=== PATIENT | female | born 2000 | race Caucasian/White ===

== ENCOUNTER 2022-11-20 15:42 | Emergency (ER) | payer MEDICARE, MEDICAID, SELFPAY ==
[2022-11-20 16:07] VITALS: BP 108/67; PULSE 97; RESP 20; TEMP 36.9; O2SAT 100; BMI 17.7
--- NOTE | 2022-11-20 16:08 | ED.FEMALEGU ---
HPI - Female Genitourinary General Chief complaint: Skin/Abscess/Foreign Body <LATANYA Noguera - Last Filed: 11/20/22 16:12> Stated complaint: outbreak? <LATANYA Noguera - Last Filed: 11/20/22 16:12> Time Seen by Provider: 11/20/22 17:02 <LATANYA Noguera - Last Filed: 11/20/22 16:12> Source: patient <Alberta Russell MD - Last Filed: 11/20/22 19:13> Mode of arrival: ambulatory <Alberta Russell MD - Last Filed: 11/20/22 19:13> History of Present Illness HPI Narrative: 22-year-old female complains of herpes to her genital area and then also notes that she is having some oral lesions that she is currently taking Magic mouthwash for as prescribed by the urgent care facility. <Alberta Russell MD - Last Filed: 11/20/22 19:13> Related Data Home medications: Previous Rx's Medication Instructions Recorded cefdinir 300 mg capsule 300 mg PO BID 7 days #14 caps 11/20/22 valacyclovir 1 gram tablet 1,000 mg PO Q12H 10 days #20 tabs 11/20/22 <LATANYA Noguera - Last Filed: 11/20/22 16:12> Allergies/Adverse reactions: Allergies Allergy/AdvReac Type Severity Reaction Status Date / Time No Known Allergies Allergy Verified 11/20/22 16:08 <LATANYA Noguera - Last Filed: 11/20/22 16:12> Review of Systems Review of Systems: Pertinent positives and negatives as stated in HPI <Alberta Russell MD - Last Filed: 11/20/22 19:13> PMFSH Past Medical History Source: nursing notes reviewed <Alberta Russell MD - Last Filed: 11/20/22 19:13> Social History Social History: Social History Advance Directives: No Advance Directives Information Provided: No <LATANYA Noguera - Last Filed: 11/20/22 16:12> Physical Exam Vital Signs: Vital Signs: Last Vital Signs Temp 98.5 F 11/20/22 16:07 Pulse 97 02/28/23 16:07 Resp 20 11/20/22 16:07 BP 108/67 11/20/22 16:07 Pulse Ox 100 11/20/22 16:07 O2 Del Method 11/20/22 16:07 BMI result Body Mass Index 17.7 <LATANYA Noguera - Last Filed: 11/20/22 16:12> Vital Signs: Last Vital Signs Temp 98.5 F 11/20/22 16:07 Pulse 97 11/20/22 16:07 Resp 20 11/20/22 16:07 BP 108/67 11/20/22 16:07 Pulse Ox 100 11/20/22 16:07 O2 Del Method 11/20/22 16:07 BMI result Body Mass Index 17.7 VITAL SIGNS: Reviewed. GENERAL: Well developed, well nourished, in no acute distress. HEAD: Normocephalic/atraumatic EYES: PERRLA, EOMI OROPHARYNX: no oral lesions noted, posterior pharynx clear, lesions noted to the gums, hard palate of the mouth and buccal mucosa NECK: Supple, no adenopathy LUNGS: Normal breath sounds. CARDIOVASCULAR: Regular rate and rhythm without noted murmurs ABDOMEN: Soft, non-tender, non-distended with bowel sounds. : Deferred NEUROLOGIC: Alert and oriented x 4. <Alberta Russell MD - Last Filed: 11/20/22 19:13> Course Course Course Narrative: RME--22-year-old female with no significant past medical history presenting to the ED complaining of suspected herpes outbreak. Reports painful lesions to lips, mouth, throat, and genital region. Admits was seen at urgent care last week prescribed Valtrex, however states unable to swallow pills due to pain. Also reports white vaginal discharge and itching. Denies new sexual partners Ulcerations and to lips, referred mouth, and tongue Herpes Cx, CTNG and UA ordered <LATANYA Noguera - Last Filed: 11/20/22 16:12> Medical Decision Making Medical Decision Making MDM Narrative: This is a 22-year-old female who presents with obvious herpangina, no evidence to suggest [id number], already on current recommended treatment. Complaints of genital herpes and will be started on recommendation of the acyclovir for 10 days and strongly recommend follow-up with primary care provider. Patient is also noted to have a UTI and received initial antibiotics here. I have reviewed all other investigations. <Alberta Russell MD - Last Filed: 11/20/22 19:13> Differential Diagnosis Please see the discussion above <Alberta Russell MD - Last Filed: 11/20/22 19:13> Lab Data Please see the discussion above <Alberta Russell MD - Last Filed: 11/20/22 19:13> Labs: Lab Results 11/20/22 11/20/22 Range/Units 16:15 16:15 Urine Color Yellow Urine Appearance Cloudy Urine pH 6.0 (5.0-9.0) Ur Specific [place] 1.025 (1.005-1.025) Urine Protein Trace (Neg-Trace) mg/dL Urine Glucose (UA) Negative (Negative) mg/dL Urine Ketones Trace (Negative) mg/dL Urine Blood Negative (Negative) Urine Nitrite Positive H (Negative) Ur Leukocyte Esterase Moderate (2+) H (Negative) Urine RBC 0-2 (0-2) /HPF Urine WBC 21-50 H (0-5) /HPF Ur Squamous Epith Cells 6-10 (0-2) /HPF Urine Bacteria 4+ (None Seen) Hyaline Casts 0-2 (0-2) /LPF Chlam trachomat DNA PCR NOT DETECTED (Not Detect.) N.gonorrhoeae DNA (PCR) NOT DETECTED (Not Detect.) <LATANYA Noguera - Last Filed: 11/20/22 16:12> Lab Results 11/20/22 11/20/22 Range/Units 16:15 16:15 Urine Color Yellow Urine Appearance Cloudy Urine pH 6.0 (5.0-9.0) Ur Specific [place] 1.025 (1.005-1.025) Urine Protein Trace (Neg-Trace) mg/dL Urine Glucose (UA) Negative (Negative) mg/dL Urine Ketones Trace (Negative) mg/dL Urine Blood Negative (Negative) Urine Nitrite Positive H (Negative) Ur Leukocyte Esterase Moderate (2+) H (Negative) Urine RBC 0-2 (0-2) /HPF Urine WBC 21-50 H (0-5) /HPF Ur Squamous Epith Cells 6-10 (0-2) /HPF Urine Bacteria 4+ (None Seen) Hyaline Casts 0-2 (0-2) /LPF Chlam trachomat DNA PCR NOT DETECTED (Not Detect.) N.gonorrhoeae DNA (PCR) NOT DETECTED (Not Detect.) <Alberta Russell MD - Last Filed: 11/20/22 19:13> Discharge Plan Discharge Clinical Impression: Genital herpes, Herpangina, UTI (urinary tract infection) <LATANYA Noguera - Last Filed: 11/20/22 16:12> Patient Disposition: Home, Self-Care <LATANYA Noguera - Last Filed: 11/20/22 16:12> Instructions: Genital Herpes Simplex (ED), Urinary Tract Infection in Women (ED), Hand, Foot, and Mouth Disease (ED) <LATANYA Noguera - Last Filed: 11/20/22 16:12> Additional Instructions: 1. Complete the entire course of antibiotics for your urinary tract infection. 2. Complete the entire course of medication for your herpes. 3. Your mouth has what is called herpangina and is appropriately being treated at this time. Use the prescribed mouthwash prior to taking medications for your UTI,etc 4. Follow-up with your primary care provider in the next 1-2 days. Return to the ER for any worsening symptoms. <LATANYA Noguera - Last Filed: 11/20/22 16:12> Prescriptions: New cefdinir 300 mg capsule 300 mg PO BID 7 Days Qty: 14 0RF valacyclovir 1 gram tablet 1,000 mg PO Q12H 10 Days Qty: 20 0RF <LATANYA Noguera - Last Filed: 11/20/22 16:12>
[2022-11-20 16:27] LABS: Appearance Urine Cloudy; Color Urine Yellow; Glucose Urine UA Negative (Negative); Leukocyte Esterase Urine Moderate (2+) (Negative); Nitrite Urine Positive (Negative); Specific Gravity - Urine 1.025 (1.005-1.025); UMIC TRIGGER UACC YES; Urine Blood Negative (Negative); Urine Ketones Trace mg/dL (Negative); Urine Protein Trace mg/dL (Neg-Trace)
[2022-11-20 16:30] LABS: Bacteria Urine 4+ (None Seen); Hyaline Casts Urine 0-2 /LPF (0-2); RBC Urine 0-2 /HPF (0-2); UACC Culture Trigger YES; WBC Urine 21-50 /HPF (0-5)
[2022-11-20 18:11] LABS: CT PCR NOT DETECTED (Not Detect.); NG PCR NOT DETECTED (Not Detect.)
== END 2022-11-20 21:08 | disposition home or self-care (01) ==
PROVIDERS: Physician Assistant; Emergency Provider Student in an Organized Health Care Education/Training Program
DX: A60.00 Herpesviral infection of urogenital system, unspecified (principal); B08.5 Enteroviral vesicular pharyngitis; N39.0 Urinary tract infection, site not specified; K13.70 Unspecified lesions of oral mucosa; Z79.899 Other long term (current) drug therapy
CPT/HCPCS: 0353U; 81001; 87086; 87088; 87186; 99282; 99283

== ENCOUNTER 2022-11-22 13:23 | Emergency (ER) | payer MEDICARE, MEDICAID, SELFPAY ==
[2022-11-22 13:38] VITALS: BP 141/67; PULSE 82; RESP 20; TEMP 36.6; O2SAT 98; BMI 15.2
--- NOTE | 2022-11-22 13:46 | ED_ITS ---
HPI - General Adult General Chief complaint: General Medical <Alphonse Hwang - Last Filed: 11/22/22 13:47> Stated complaint: hot/cold flashes, sob, R side pain <Alphonse Hwang - Last Filed: 11/22/22 13:47> Time Seen by Provider: 11/22/22 16:24 <Alphonse Hwang - Last Filed: 11/22/22 13:47> Source: patient, RN notes reviewed and old records reviewed <LATANYA Davis - Last Filed: 11/22/22 17:45> Mode of arrival: ambulatory <LATANYA Davis - Last Filed: 11/22/22 17:45> Limitations: no limitations <LATANYA Davis - Last Filed: 11/22/22 17:45> History of Present Illness HPI narrative: This is a 22-year-old female, with a past medical history of herpes, presents to the emergency department with worsening herpetic pain in her mouth as well as her genitals. Patient was seen on 11/20/2022 with a genital and oral herpetic outbreak and a urinary tract infection. At that visit, she was discharged on a course of cefdinir, valacyclovir, viscous lidocaine and viscous nystatin which she has been taking, however, she reports that her symptoms are not improving and her pain is worsening in her mouth and genitalia. She endorses subjective fevers. She denies any documented fevers, chills, abdominal pain nausea, vomiting, or diarrhea. She does report that she has a difficult time eating solid foods as the pain in her mouth is so significant. She is able to tolerate liquids. She states that this is her second herpetic outbreak. <LATANYA Davis - Last Filed: 11/22/22 17:45> MD complaint: mouth and genital sores <LATANYA Davis - Last Filed: 11/22/22 17:45> Onset (ago): day(s) <LATANYA Davis - Last Filed: 11/22/22 17:45> Location: mouth and genitals <LATANYA Davis Last Filed: 11/22/22 17:45> Radiation: non-radiation <LATANYA Davis Last Filed: 11/22/22 17:45> Severity: moderate <LATANYA Davis - Last Filed: 11/22/22 17:45> Severity scale (1-10): 8 <LATANYA Davis - Last Filed: 11/22/22 17:45> Quality: burning, aching and sharp <LATANYA Davis - Last Filed: 11/22/22 17:45> Pain Consistency: constant <LATANYA Davis - Last Filed: 11/22/22 17:45> Relieving factors: none <LATANYA Davis - Last Filed: 11/22/22 17:45> Exacerbating factors: none <LATANYA Davis - Last Filed: 11/22/22 17:45> Associated symptoms: fever/chills (Subjective) <LATANYA Davis - Last Filed: 11/22/22 17:45> Treatments prior to arrival: none <LATANYA Davis - Last Filed: 11/22/22 17:45> Related Data Home medications: Previous Rx's Medication Instructions Recorded cefdinir 300 mg capsule 300 mg PO BID 7 days #14 caps 11/20/22 valacyclovir 1 gram tablet 1,000 mg PO Q12H 10 days #20 tabs 11/20/22 Magic Mouthwash 15 ml PO Q2-3H PRN oral pain #240 11/22/22 Diphen/Lido/Antacid 1:1:1 240 mL mL suspension ibuprofen 100 mg/5 mL oral 300 mg (15 mL) PO Q6H #120 mL 11/22/22 suspension oxycodone 5 mg tablet 5 mg PO Q8H PRN pain #5 tabs 11/22/22 <Alphonse Hwang - Last Filed: 11/22/22 13:47> Allergies/adverse reactions: Allergies Allergy/AdvReac Type Severity Reaction Status Date / Time No Known Allergies Allergy Verified 11/20/22 16:08 <Alphonse Hwang - Last Filed: 11/22/22 13:47> Review of Systems Review of Systems: Yes all other systems are reviewed and are negative <LATANYA Davis - Last Filed: 11/22/22 17:45> PMFSH Social History Social History: Social History Advance Directives: No Advance Directives Information Provided: No <Alphonse Eri - Last Filed: 11/22/22 13:47> Physical Exam ED Vital Signs: Vital Signs - 24 hr 11/22/22 13:38 11/22/22 16:45 Temperature 97.9 F 98.8 F Pulse Rate 82 72 Respiratory Rate 20 16 Blood Pressure 141/67 H 113/63 Pulse Oximetry 98 98 Oxygen Delivery Method Room Air Room Air BMI result Body Mass Index 15.2 <Alphonse Hwang - Last Filed: 11/22/22 13:47> Vital Signs - 24 hr 11/22/22 13:38 11/22/22 16:45 Temperature 97.9 F 98.8 F Pulse Rate 82 72 Respiratory Rate 20 16 Blood Pressure 141/67 H 113/63 Pulse Oximetry 98 98 Oxygen Delivery Method Room Air Room Air BMI result Body Mass Index 15.2 <LATANYA Davis - Last Filed: 11/22/22 17:45> Appearance: Alert. Oriented X3. No acute distress. Thin build. HEENT: Numerous oral ulcerated lesions noted to the hard and soft palate, gums, buccal mucosa and sublingual area. Oral mucosa is moist. CVS: Normal heart rate and rhythm. Pulses normal. Respiratory: No respiratory distress. Skin: Skin warm and dry. Normal skin color. Normal skin turgor. No rashes. Extremities: Normal range of motion of upper and lower extremities. : external genitalia with mild generalized swelling, ulcerative lesions at the bilateral labia minora Neuro: Oriented X 3. No motor deficit. No sensory deficit. <LATANYA Davis - Last Filed: 11/22/22 17:45> Course Course Course Narrative: 22-year-old female who was seen here 2 days ago and diagnosed with genital herpes presents for evaluation of runny nose, sore throat, hot flashes. She is taking her Valtrex reports she is able to swallow but has pain with swallowing. The patient reports her symptoms are worsening so she re-presented to the emergency department. She is well-appearing. Will add on viral swab and strep throat. It is likely that her symptoms are related to the herpes outbreak. However there may be other trigger which caused the outbreak <Alphonse Hwang - Last Filed: 11/22/22 13:47> Reevaluation(s) Reevaluation #1: Viral swab and strep swab negative. Patient's symptoms consistent with genital herpes outbreak, advised to continue Valtex and cefdinir as directed. Prescribed magic mouthwash to help with pain, as well as oxycodone and liquid motrin. Discussed the importance of finding a PCP and [employer], given list of providers in the area to follow up with. Encouraged to eat soft foods until mouth lesion pain improve. <LATANYA Davis - Last Filed: 11/22/22 17:45> Time: 17:30 <LATANYA Davis - Last Filed: 11/22/22 17:45> Medical Decision Making Medical Decision Making [facility] Narrative: This is a 22-year-old female presents to the emergency department today with complaints of oral herpes, and genital herpes x1 week. <LATANYA Davis - Last Filed: 11/22/22 17:45> Differential Diagnosis Differential Diagnoses: The differential diagnosis associated with the presentation includes <LATANYA Davis - Last Filed: 11/22/22 17:45> Genital herpes, oral herpes, stomatitis, hand foot and mouth, vagintitis <LATANYA Davis - Last Filed: 11/22/22 17:45> Lab Data [facility] Lab Attestation statement: I reviewed the patient's lab results. <LATANYA Davis - Last Filed: 11/22/22 17:45> negative viral and strep test today <LATANYA Davis - Last Filed: 11/22/22 17:45> Labs: Lab Results 11/22/22 11/22/22 Range/Units 14:54 14:54 Influenza Type A (PCR) NEGATIVE (Negative) Influenza Type B (PCR) NEGATIVE (Negative) RSV RNA Qual (PCR) NEGATIVE (Negative) SARS-CoV-2 RNA (RT-PCR) NEGATIVE (Negative) S. pyogenes GrpA JULISA Negative (Negative) <Alphonse Hwang - Last Filed: 11/22/22 13:47> Lab Results 11/22/22 11/22/22 Range/Units 14:54 14:54 Influenza Type A (PCR) NEGATIVE (Negative) Influenza Type B (PCR) NEGATIVE (Negative) RSV RNA Qual (PCR) NEGATIVE (Negative) SARS-CoV-2 RNA (RT-PCR) NEGATIVE (Negative) S. pyogenes GrpA JULISA Negative (Negative) <LATANYA Davis - Last Filed: 11/22/22 17:45> Prescription Management I considered prescription management with: Pain Medication, Antiviral and Antibiotic <LATANYA Davis - Last Filed: 11/22/22 17:45> Discharge Plan Discharge Clinical Impression: Genital herpes, Oral herpes <Alphonse Hwang - Last Filed: 11/22/22 13:47> Patient Disposition: Home, Self-Care <Alphonse Hwang - Last Filed: 11/22/22 13:47> Instructions: Genital Herpes Simplex (ED), Oral Herpes Simplex Virus Infections (ED) <Alphonse Hwang - Last Filed: 11/22/22 13:47> Additional Instructions: You tested negative for flu, RSV, and COVID-19 today. Please continue taking prescribed Valacyclovir (anti-viral) and Cefdinir (antibiotic) prescribed to you at your last ER visit as directed. Use prescribed motrin as directed as needed for pain. Please use the prescribed oxycodone as directed as needed for severe pain. Please be advised this may cause drowsiness, do not drink alcohol or drive while taking this medication. Use magic mouthwash as directed as needed for mouth pain. Continue to eat soft foods including soups, puddings, liquids, until your mouth pain improves. Please follow up with a primary care physician. If you develop new or worsening symptoms call 911 or come back to the ER for further evaluation. <Alphonse Hwang - Last Filed: 11/22/22 13:47> Prescriptions: New Magic Mouthwash Diphen/Lido/Antacid 1:1:1 240 mL suspension 15 ml PO Q2-3H PRN (Reason: oral pain) Qty: 240 0RF Rx Instructions: 15 mL orally as needed ;Lidocaine Viscous 2 % 80mL; diphenhydramine 12.5 mg/5 mL 80mL; aluminum-mag hydrox-simeth [id number] 80mL oxycodone 5 mg tablet 5 mg PO Q8H PRN (Reason: pain) Qty: 5 0RF Rx Instructions: Partial Fill upon patient request. ibuprofen 100 mg/5 mL suspension 300 mg PO Q6H Qty: 120 0RF No Action cefdinir 300 mg capsule 300 mg PO BID 7 Days Qty: 14 0RF valacyclovir 1 gram tablet 1,000 mg PO Q12H 10 Days Qty: 20 0RF <Alphonse Hwang - Last Filed: 11/22/22 13:47>
[2022-11-22 15:16] LABS: IDNOW Serial# 6674DD1D; Strep A Nucleic Acid Negative (Negative)
[2022-11-22 15:40] LABS: Influenza A PCR NEGATIVE (Negative); Influenza B PCR NEGATIVE (Negative); Resp Syncy Virus RNA Qual PCR NEGATIVE (Negative); SARS COV2 PCR INHOUSE NEGATIVE (Negative)
[2022-11-22 16:45] VITALS: BP 113/63; PULSE 72; RESP 16; TEMP 37.1; O2SAT 98
== END 2022-11-22 18:09 | disposition home or self-care (01) ==
PROVIDERS: Physician Assistant; Emergency Provider Emergency Medicine
DX: A60.00 Herpesviral infection of urogenital system, unspecified (principal); R06.02 Shortness of breath; K13.79 Other lesions of oral mucosa; R50.9 Fever, unspecified; Z20.822 Contact with and (suspected) exposure to COVID-19; Z20.828 Contact with and (suspected) exposure to other viral communicable diseases
CPT/HCPCS: 0241U; 87651; 99283

== ENCOUNTER 2023-06-16 06:34 | Emergency (ER) | payer MEDICARE, MEDICAID, SELFPAY ==
--- NOTE | ~2023-06-16 | US_ITS ---
EXAMINATION: US FIRST [facility] CLINICAL INFORMATION: Abdominal pain LMP: 04/11/2023 COMPARISON: None available. TECHNIQUE: Transabdominal imaging was performed. FINDINGS: UTERUS AND INTRAUTERINE GESTATIONAL SAC: There is a fluid-filled structure within the endometrium could be a very small gestational sac versus pseudogestational sac measures 0.4 x 0.5 x 0.3 cm, possibly a of 4 weeks and 6 days. CROWN-RUMP LENGTH (CRL) no poles were found. YOLK SAC: Not found SUBCHORIONIC HEMORRHAGE: None OVARIES: Right: Normal complex cystic structure likely involuted corpus luteal cyst 2.4 x 1.8 x 1.7 cm. Left: Normal FREE FLUID: None OTHER FINDINGS: None US/US OB pelvic and transvaginal IMPRESSION: 1. Endometrial fluid filled structure sac could be gestational sac or pseudogestational sac, if this is early would be 4 weeks and 6 days. At this early stage cannot entirely rule out the possibility of ectopic , however none was readily seen. Please correlate with patient's hCG levels, attention to short-term follow-up in few weeks recommended. 2. Complex cystic structure in the right adnexa probably involuted corpus luteal cyst 2.4 cm.
[2023-06-16 06:41] VITALS: BP 121/62; PULSE 85; RESP 18; TEMP 36.9; O2SAT 100; BMI 16.1
[2023-06-16 06:59] VITALS: BP 106/52; PULSE 62; RESP 18; TEMP 36.8; O2SAT 99
--- NOTE | 2023-06-16 07:01 | PC.NURSE ---
Patient reports 05/02 abdominal aden that started about 2 days after the completion of her period States that pain comes and goes but is all over her abdomen and extends to her lower back. Denies pain with urination or blood in urine. Denies nasuea, states vomited in mouth x 1 last week. Denies chest pain, sob, or headache
[2023-06-16 07:16] LABS: UPreg QC Valid YES; Urine Pregnancy POSITIVE (NEGATIVE)
[2023-06-16 07:21] LABS: Appearance Urine Cloudy; Color Urine Yellow; Glucose Urine UA Negative (Negative); Leukocyte Esterase Urine Moderate (2+) (Negative); Nitrite Urine Negative (Negative); PH 6.5 (5.0-9.0); Specific Gravity - Urine 1.025 (1.005-1.025); UMIC TRIGGER UACC YES; Urine Blood Negative (Negative); Urine Ketones Trace mg/dL (Negative); Urine Protein Trace mg/dL (Neg-Trace)
--- NOTE | 2023-06-16 07:22 | ED_ITS ---
HPI - Abdominal Pain General Chief Complaint: Abdominal Pain Stated Complaint: stomach pain, dizziness Time Seen by Provider: 06/16/23 07:10 Source: patient Mode of arrival: ambulatory Limitations: no limitations History of Present Illness HPI narrative: 23-year-old female, G2, P0 presents with upper abdominal pain. The symptoms started yesterday. Patient is approximately 9 weeks . She denies any vaginal bleeding or discharge. She denies any nausea vomiting. There has been no fevers or chills. He upper abdominal pain is moderate nature. It is intermittent. It feels crampy in nature. Does not radiate. There is no clear relieving or exacerbating features. She has had 1 episode of nonbloody diarrhea. She denies any urinary frequency or urgency. She is currently not on a vitamin. She has not had an ultrasound her care at this time. Related Data Previous Rx's Medication Instructions Recorded cefdinir 300 mg capsule 300 mg PO BID 7 days #14 caps 11/20/22 valacyclovir 1 gram tablet 1,000 mg PO Q12H 10 days #20 tabs 11/20/22 Magic Mouthwash 15 ml PO Q2-3H PRN oral pain #240 11/22/22 Diphen/Lido/Antacid 1:1:1 240 mL mL suspension ibuprofen 100 mg/5 mL oral 300 mg (15 mL) PO Q6H #120 mL 11/22/22 suspension oxycodone 5 mg tablet 5 mg PO Q8H PRN pain #5 tabs 11/22/22 nitrofurantoin 100 mg PO BID #14 caps 06/16/23 monohydrate/macrocrystals 100 mg capsule (Macrobid) Allergies Allergy/AdvReac Type Severity Reaction Status Date / Time No Known Allergies Allergy Verified 11/20/22 16:08 Review of Systems Review of Systems CONSTITUTIONAL: Denies weight loss, fever and chills. HEENT: Denies changes in vision and hearing. RESPIRATORY: Denies SOB and cough. CV: Denies palpitations no CP. GI: + abdominal pain, -nausea, vomiting and diarrhea. : Denies dysuria and urinary frequency. MSK: Denies myalgia and joint pain. SKIN: Denies rash and pruritus. NEUROLOGICAL: Denies headache and syncope. PSYCHIATRIC: Denies recent changes in mood. Denies anxiety and depression. All other ROS are negative unless in HPI [facility] Social History Social History Alcohol intake: never Smoked in Last 30 Days: No Use of substances other than those prescribed or required for medical reasons: No Advance Directives: No Advance Directives Information Provided: No Physical Exam ED Vital Signs: Vital Signs - 24 hr 06/16/23 06:41 06/16/23 06:59 Temperature 98.4 F 98.2 F Pulse Rate 85 62 Respiratory Rate 18 18 Blood Pressure 121/62 106/52 L Pulse Oximetry 100 99 Oxygen Delivery Method Room Air Room Air BMI result Body Mass Index 16.1 GEN: Well developed, no acute distress, alert, oriented HEENT: Normocephalic, atraumatic, normal external ears, nose appears normal, no oropharyngeal edema or exudates Eyes: Normal to appearance Neck: Supple, no lymphadenopathy Respiratory: Talks in complete sentences, no respiratory distress, clear to auscultation bilaterally Cardiovascular: Regular rate and rhythm, no murmurs rubs or gallops Abdomen: Soft, nontender, nondistended, no guarding, no rebound Back: No CVA tenderness Extremities: No clubbing cyanosis or edema Neurologic: No focal neurologic deficits, cranial nerves 2-12 intact, strength is 5/5 bilaterally Skin: No rash Course Course Course Narrative: The workup is complete. There is no definite IUP seen. Beta hCG is 2000. I communicated with the on-call dinner cook. Recommending 2 day follow-up and to return for any worsening concerning symptoms such as increasing abdominal pain, vaginal bleeding or discharge. Patient does have a mildly elevated lipase. This could certainly be the etiology of her symptoms. She does not warrant hospitalization for mild pancreatitis. I discussed all results with patient. She understands the reasoning for follow-up and she will start a vitamin. Medical Decision Making Medical Decision Making MDM Narrative: 23-year-old female presents with upper abdominal pain, 1 episode of diarrhea. Examination is benign. There is no significant tenderness, rebound or guarding. Patient does not have a history of a confirmed IUP. She denies any vaginal bleeding or discharge. At this point, the most important thing to consider is an ectopic . Ultrasound will be ordered to rule this out. Also discussed routine care. She will be having routine laboratory testing including CBC, chemistry, lipase, urinalysis to rule out other possible differential diagnosis including hepatic dysfunction, pancreatitis. Patient may have gastroenteritis, dyspepsia, heartburn, gastritis. Will provide patient with Tylenol and famotidine for symptomatic relief. Differential Diagnosis Differential Diagnoses: The differential diagnosis associated with the presentation includes (See above) Admission/Observation Consideration of admission/observation: Escalation of care including admission/observation considered Lab Data MDM Lab Attestation statement: I reviewed the patient's lab results. 06/16/23 08:28 06/16/23 08:28 Labs: Lab Results 06/16/23 06/16/23 Range/Units 07:11 08:28 WBC 6.8 (4.8-10.8) X10*3/uL RBC 4.28 (4.20-5.50) X10*6/uL Hgb 12.0 (12.0-16.0) g/dl Hct 35.7 L (37.0-47.0) % MCV 83.4 (80.0-98.0) fL MCH 28.0 (27.0-33.0) pg MCHC 33.6 (31.0-35.0) g/dl RDW 14.2 (11.0-16.0) % Plt Count 182 (160-400) X10*3/uL MPV 9.9 (9.4-12.3) fL Immature Gran % (Auto) 0.3 (0.0-0.4) % Neut % (Auto) 69.2 (45-73) % Lymph % (Auto) 22.7 (20-40) % [place] % (Auto) 7.2 (2-11) % Eos % (Auto) 0.3 (0-4) % Baso % (Auto) 0.3 (0-2) % Lymph # (Auto) 1.6 (1.2-4.9) X10*3/uL [place] # (Auto) 0.5 (0.1-1.2) X10*3/uL Eos # (Auto) 0.0 (0.0-0.4) X10*3/uL Baso # (Auto) 0.0 (0.0-0.2) X10*3/uL Abs Immat Gran (auto) 0.02 (0.00-0.03) X10*3/uL Absolute Neuts (auto) 4.7 (2.0-8.3) x10*3/uL Absolute Nucleated RBC 0.000 (0.0-0.012) X10*3/uL Nucleated RBC % (auto) 0.0 (0.0-0.2) /100WBC Sodium 135 (135-145) mmol/L Potassium 4.1 (3.3-5.1) mmol/L Chloride 107 (96-108) mmol/L Carbon Dioxide 21 L (22-29) mmol/L Anion Gap 11 L (12-20) BUN 8 L (9-16) mg/dL Creatinine 0.76 (0.5-1.4) mg/dL Estim Creat Clear Calc 83.1 Estimated GFR > 60 Random Glucose 82 (60-115) mg/dL Calcium 9.8 (8.4-10.2) mg/dL Total Bilirubin 0.5 (0.0-1.0) mg/dL AST 19 (5-31) U/L ALT 10 (0-31) U/L Alkaline Phosphatase 48 (39-117) U/L Total Protein 7.8 (6.5-8.0) g/dL Albumin 4.4 (3.5-5.0) g/dL Lipase 231 H (8-78) U/L Beta HCG, Quant 2018 mIU/mL Urine Color Yellow Urine Appearance Cloudy Urine pH 6.5 (5.0-9.0) Ur Specific [place] 1.025 (1.005-1.025) Urine Protein Trace (Neg-Trace) mg/dL Urine Glucose (UA) Negative (Negative) mg/dL Urine Ketones Trace (Negative) mg/dL Urine Blood Negative (Negative) Urine Nitrite Negative (Negative) Ur Leukocyte Esterase Moderate (2+) H (Negative) Urine RBC 0-2 (0-2) /HPF Urine WBC 21-50 H (0-5) /HPF Ur Squamous Epith Cells >20 (0-2) /HPF Urine Bacteria 4+ (None Seen) Hyaline Casts 0-2 (0-2) /LPF Urine Test POSITIVE H (NEGATIVE) Blood Type O Positive Antibody Screen NEGATIVE Independent Interpretation I performed an independent interpretation of an: Ultrasound Radiology Impression Discussion of test interpretation with radiology: I have reviewed the radiologist's reading. Independent Historian Clinical information obtained from an independent historian. History obtained from or confirmed by: Friend Prescription Management I considered prescription management with: Pain Medication Medications Administered Discontinued Medications Generic Name Dose Route Start Last Admin Trade Name Lauri PRN Reason Stop Dose Admin Acetaminophen 975 mg 06/16/23 07:20 06/16/23 07:30 Acetaminophen 325 Mg Tablet PO 06/16/23 07:21 975 mg ONCE ONE Administration Famotidine 20 mg 06/16/23 07:20 06/16/23 07:31 Famotidine 20 Mg Tablet PO 06/16/23 07:21 20 mg ONCE ONE Administration Nitrofurantoin Macrocrystals 100 mg 06/16/23 08:03 06/16/23 08:20 Nitrofurantoin Monohyd/M-Cryst 100 Mg Capsule PO 06/16/23 08:04 100 mg ONCE ONE Administration Discharge Plan Discharge Clinical Impression: Abdominal pain, Acute lower UTI, Elevated lipase Patient Disposition: Home, Self-Care Instructions: Vitamins (By mouth), (ED), Pancreatitis (ED), Abdominal Pain in (ED) Additional Instructions: The reason the emergency department today with abdominal pain. Examination was relatively benign. Ultrasound did not confirm a definite intrauterine . We are recommending close follow-up in 2 days for repeat ultrasound and hormone level testing. In addition, you had mildly elevated lipase level. This is a pancreatic enzyme. He may have very mild pancreatitis. However, should she have increasing abdominal pain intractable nausea vomiting, vaginal bleeding or any other concerning symptoms, please return immediately to the emergency department. Additionally, you were diagnosed with urinary tract infection. You should take antibiotics as prescribed. Prescriptions: New nitrofurantoin monohyd/m-cryst [Macrobid] 100 mg capsule 100 mg PO BID Qty: 14 0RF Rx Instructions: must administer with a meal/food No Action cefdinir 300 mg capsule 300 mg PO BID 7 Days Qty: 14 0RF valacyclovir 1 gram tablet 1,000 mg PO Q12H 10 Days Qty: 20 0RF Magic Mouthwash Diphen/Lido/Antacid 1:1:1 240 mL suspension 15 ml PO Q2-3H PRN (Reason: oral pain) Qty: 240 0RF Rx Instructions: 15 mL orally as needed ;Lidocaine Viscous 2 % 80mL; diphenhydramine 12.5 mg/5 mL 80mL; aluminum-mag hydrox-simeth [id number]/5mL 80mL oxycodone 5 mg tablet 5 mg PO Q8H PRN (Reason: pain) Qty: 5 0RF Rx Instructions: Partial Fill upon patient request. ibuprofen 100 mg/5 mL suspension 300 mg PO Q6H Qty: 120 0RF Referrals: Van Parker MD [Physician] - 2 days
[2023-06-16 07:26] LABS: Bacteria Urine 4+ (None Seen); Hyaline Casts Urine 0-2 /LPF (0-2); RBC Urine 0-2 /HPF (0-2); Squamous Epithelial Cell Urine >20 /HPF (0-2); UACC Culture Trigger YES; WBC Urine 21-50 /HPF (0-5)
[2023-06-16] MEDS: Acetaminophen 325 MG TABLET 975 MG PO (07:30)
[2023-06-16] MEDS: Famotidine 20 MG TABLET PO (07:31)
[2023-06-16] MEDS: Nitrofurantoin Monohyd/M-Cryst 100 MG CAPSULE PO (08:20)
--- NOTE | 2023-06-16 08:31 | MHC.EDTECH ---
Labs collected and sent
[2023-06-16 08:35] LABS: MANUAL DIFF FLAG NO
[2023-06-16 08:36] LABS: Basophils Percent Auto 0.3 % (0-2); Eosinophils Percent Auto 0.3 % (0-4); Hematocrit 35.7 % (37.0-47.0); Imm Gran Abs Auto 0.02 X10*3/uL (0.00-0.03); Imm Gran Pct Auto 0.3 % (0.0-0.4); Lymphocytes Absolute Auto 1.6 X10*3/uL (1.2-4.9); Lymphocytes Percent Auto 22.7 % (20-40); Mean Corpuscular HGB Conc 33.6 g/dl (31.0-35.0); Mean Corpuscular Volume 83.4 fL (80.0-98.0); Mean Platelet Volume 9.9 fL (9.4-12.3); Monocytes Absolute Auto 0.5 X10*3/uL (0.1-1.2); Monocytes Percent Auto 7.2 % (2-11); Neutrophils Absolute Auto 4.7 x10*3/uL (2.0-8.3); Neutrophils Percent Auto 69.2 % (45-73); Platelet Count 182 X10*3/uL (160-400); Red Blood Count 4.28 X10*6/uL (4.20-5.50); Red Cell Distribution Width 14.2 % (11.0-16.0); White Blood Count 6.8 X10*3/uL (4.8-10.8)
[2023-06-16 09:06] LABS: Alanine Aminotransferase 10 U/L (0-31); Albumin Level 4.4 g/dL (3.5-5.0); Alkaline Phosphatase 48 U/L (39-117); Anion Gap 11 (12-20); Aspartate Amino Transferase 19 U/L (5-31); Blood Urea Nitrogen 8 mg/dL (9-16); Calcium 9.8 mg/dL (8.4-10.2); Carbon Dioxide 21 mmol/L (22-29); Chloride 107 mmol/L (96-108); Creatinine Clr Calc Pharmacy 83.1; Estimated Glomerular Filt Rate > 60; Glucose Random 82 mg/dL (60-115); HCG Quantitative 2018 mIU/mL; Lipase 231 U/L (8-78); Potassium 4.1 mmol/L (3.3-5.1); Sodium 135 mmol/L (135-145); Total Protein 7.8 g/dL (6.5-8.0)
[2023-06-16 09:53] LABS: Bilirubin Total 0.5 mg/dL (0.0-1.0)
--- NOTE | 2023-06-16 10:20 | PM.GYNCN ---
WOODWORKING MACHINE SETTER - CN: HPI Data of Consult Consult date: 06/16/23 Primary Care Provider: Unknown Physician Consult Narrative Narrative: I was consulted on Mimi Mujica who is a 23 year old female at 9 weeks of gestation presented to the emergency room with upper abdominal pain since yesterday, it is intermittent and crampy in nature associated with 1 episode of nonbloody diarrhea, no vaginal bleeding or pelvic pain or discharge, no nausea or vomiting, no fever or chills. She is currently not on a vitamin, and has had no care at this time. HCG 2018, blood type O positive cc:: CC: OB [facility] Social History Social History Alcohol intake: never Smoked in Last 30 Days: No Use of substances other than those prescribed or required for medical reasons: No Advance Directives: No Advance Directives Information Provided: No Meds Allergies Allergy/AdvReac Type Severity Reaction Status Date / Time No Known Allergies Allergy Verified 11/20/22 16:08 [employer]WORK[employer]TER Physical Exam Vitals Vital signs: Temp Pulse Resp BP Pulse Ox O2 Del Method 98.2 F 62 18 106/52 L 99 Room Air 06/16/23 06:59 06/16/23 06:59 06/16/23 06:59 06/16/23 06:59 06/16/23 06:59 06/16/23 06:59 BMI result Body Mass Index 16.1 Additional Comments: Physical exam according to Dr. Sen shows the following: Abdominal exam soft, nontender no rebound or guarding [employer]ACH[employer]TER - Results Labs 06/16/23 08:28 06/16/23 08:28 Labs: Short CBC 06/16/23 Range/Units 08:28 WBC 6.8 (4.8-10.8) X10*3/uL Hgb 12.0 (12.0-16.0) g/dl Hct 35.7 L (37.0-47.0) % Plt Count 182 (160-400) X10*3/uL BMP 06/16/23 08:28 Sodium 135 Potassium 4.1 Chloride 107 Carbon Dioxide 21 L BUN 8 L Creatinine 0.76 Calcium 9.8 Liver Function 06/16/23 Range/Units 08:28 Total Bilirubin 0.5 (0.0-1.0) mg/dL AST 19 (5-31) U/L ALT 10 (0-31) U/L Alkaline Phosphatase 48 (39-117) U/L Albumin 4.4 (3.5-5.0) g/dL Urine 06/16/23 Range/Units 07:11 Urine Color Yellow Urine Appearance Cloudy Urine pH 6.5 (5.0-9.0) Ur Specific [place] 1.025 (1.005-1.025) Urine Protein Trace (Neg-Trace) mg/dL Urine Glucose (UA) Negative (Negative) mg/dL Urine Test POSITIVE H (NEGATIVE) Antibody Screen Antibody Screen NEGATIVE 06/16/23 08:28 Imaging US - abdomen: Radiologist's impression: ITS Impressions Pelvic/Transvag US 06/16/23 08:09 IMPRESSION: 1. Endometrial fluid filled structure sac could be gestational sac or pseudogestational sac, if this is early would be 4 weeks and 6 days. At this early stage cannot entirely rule out the possibility of ectopic , however none was readily seen. Please correlate with patient's hCG levels, attention to short-term follow-up in few weeks recommended. 2. Complex cystic structure in the right adnexa probably involuted corpus luteal cyst 2.4 cm. Assessment and Plan (1) Early stage of : Status: Acute Discussed with Dr. Sen the following: Differential diagnosis of early includes IUP, ectopic . Recommended hCG and ultrasound to be repeated in the 48 hours. SAB/ectopic warnings to be given to the patient, she is to come back to the emergency room in case of pelvic pain and/ or vaginal bleeding otherwise follow-up in the office in 48 hours with hCG and repeat ultrasound. vitamin 1 tablet p.o. q.d. (2) Abdominal pain: Status: Acute Discussed with Dr. Sen the following: Upper abdominal pain with elevated lipase and normal abdominal exam, possible differential diagnosis includes GI cause or other, likely OB related, therefore, will defer the management of the abdominal pain and elevated lipase to the emergency room team. I spent a total of 20 minutes reviewing the chart, communicating the emergency room provider and documenting in the medical record. Time Spent With Patient Time: Total time managing care of this patient today ____ minutes.
--- NOTE | 2023-06-16 10:56 | PC.NURSE ---
Discharge plan reviewed with patient who verbalized understanding
== END 2023-06-16 11:05 | disposition home or self-care (01) ==
PROVIDERS: Emergency Provider Emergency Medicine
DX: O23.41 Unspecified infection of urinary tract in pregnancy, first trimester (principal); N39.0 Urinary tract infection, site not specified; R10.10 Upper abdominal pain, unspecified; R19.7 Diarrhea, unspecified; Z3A.09 9 weeks gestation of pregnancy; Z79.899 Other long term (current) drug therapy
CPT/HCPCS: 36415; 76801; 76817; 80053; 81001; 81025; 83690; 84702; 85025; 86850; 86900; 86901; 87086; 87088; 87186; 99284

== ENCOUNTER → 2023-06-16 06:57 | Outpatient (BNV) | payer MEDICARE, MEDICAID, SELFPAY | PROVIDERS: Emergency Provider Emergency Medicine; Visit Provider Obstetrics & Gynecology | DX: R10.9 Unspecified abdominal pain (principal); Z34.90 Encounter for supervision of normal pregnancy, unspecified, unspecified trimester | CPT/HCPCS: 99283 ==

== ENCOUNTER 2023-06-17 09:01 | Outpatient (REF) | payer MEDICARE, MEDICAID, SELFPAY | END 2023-06-17 09:02 | disposition home or self-care (01) | LOC: HO.LNP 09:01 | PROVIDERS: Visit Provider Obstetrics & Gynecology | DX: Z13.89 Encounter for screening for other disorder (principal) ==